=== PATIENT | male | born 1995 | race Caucasian/White ===

== ENCOUNTER 2019-02-02 23:05 | Emergency (ER) | payer MEDICAID ==
[~2019-02-02] VITALS: Ht 175.3 cm; Wt 95.2 kg
== END 2019-02-03 00:31 | disposition home or self-care (01) ==
LOC: ER 23:05
DX: F10.129 Alcohol abuse with intoxication, unspecified (principal); R11.10 Vomiting, unspecified; J45.909 Unspecified asthma, uncomplicated; F90.9 Attention-deficit hyperactivity disorder, unspecified type; Z88.0 Allergy status to penicillin
CPT/HCPCS: 99284; A9270-GY

== ENCOUNTER 2024-01-31 13:38 | Emergency (ER) | payer OTHER ==
[~2024-01-31] VITALS: Ht 172.7 cm; Wt 76.7 kg
[2024-01-31 14:16] VITALS: BP 165/98
== END 2024-01-31 17:58 | disposition home or self-care (01) ==
LOC: ER 13:38
DX: R51.9 Headache, unspecified (principal); Z88.0 Allergy status to penicillin